=== PATIENT | female | born 1960 | race Caucasian/White ===

== ENCOUNTER 2018-11-21 09:59 | Day surgery (SDC) | payer BC ==
[2018-11-21] MEDS ORDERED: FENTAnyl 50 MCG/ML VIAL (12:39)
[2018-11-21] MEDS ORDERED: MIDAZOLAM 1 MG/ML 2 ML INJ ×2 (12:39)
== END 2018-11-21 14:17 | disposition home or self-care (01) ==
LOC: GIL 09:59
DX: Z12.11 Encounter for screening for malignant neoplasm of colon (principal); K64.8 Other hemorrhoids
CPT/HCPCS: 45378